=== PATIENT | male | born 1980 | race Caucasian/White ===

== ENCOUNTER 2020-12-22 11:17 | Observation (INO) | payer OTHER, SELFPAY ==
[2020-12-22] VITALS (12 sets, daily range): BP systolic 107–131; BP diastolic 63–89; PULSE 81–117; RESP 16–20; TEMP 36.3–36.6; O2SAT 95–98; BMI 23.8
--- NOTE | ~2020-12-22 | CT_ITS ---
EXAMINATION: CT abdomen pelvis w con DATE: 12/22/2020 15:34 INDICATION: Vomiting. Diarrhea. TECHNIQUE: Computed tomography (CT) of the abdomen and pelvis was performed with 100 mL Omnipaque 350 intravenous contrast. Automated exposure control and iterative reconstruction technique were employe d. The dose-length product was 233.68 mGy-cm. COMPARISON: None. FINDINGS: The visualized portions of the lung bases are clear without pneumonia or pleural effusion. The heart size is normal. No pericardial effusion. There is mild wall thickening of the distal esopha david, likely esophagitis. The liver, gallbladder, spleen, pancreas, adrenal glands, and kidneys are no rmal. The prostate is mildly enlarged. There are dilated loops of jejunum without focal transition po int. The appendix is normal. There are no pathologically enlarged lymph nodes. There is no free intra peritoneal fluid. The bones are unremarkable. IMPRESSION: 1. Mild wall thickening of the distal esophagus, likely esophagitis. 2. Dilated loops of jejunum without focal transition point, likely adynamic ileus. Reviewed, dictated and finalized at location [facility]. [employer] IMPRESSION: 1. Mild wall thickening of the distal esophagus, likely esophagitis. 2. Dilated loops of jejunum without focal transition point, likely adynamic ile us.
[2020-12-22 12:14] LABS: Basophils Percent Auto 0.3 % (0.2-1.2); Eosinophils Absolute Auto 0.3 K/mm3 (0-0.3); Hematocrit 46.6 % (42.0-52.0); Hemoglobin 15.7 g/dL (14.0-18.0); Immature Granulocyte Absolute 0.01 K/mm3 (0.00-0.031); Immature Granulocyte Percent A 0.2 % (0-0.5); Lymphocytes Absolute Auto 0.97 K/mm3 (0.9-3.2); Lymphocytes Percent Auto 15.4 % (18.3-44.2); Mean Corpuscular HGB Conc 33.7 g/dl (32-36); Mean Corpuscular Hemoglobin 29.8 pg (26-34); Mean Corpuscular Volume 88.4 fl (80-100); Mean Platelet Volume 8.8 fl (7.4-10.4); Monocytes Percent Auto 15.9 % (2.6-8.5); Neutrophils Absolute Auto 4.1 K/mm3 (1.3-6.7); Neutrophils Percent Auto 64.2 % (45.5-73.1); Platelet Count Result 263 k/mm3 (150-375); Red Blood Count 5.27 M/mm3 (4.6-6.20); Red Cell Distribution Width 12.6 % (11.5-14.5); White Blood Count 6.3 K/mm3 (4.5-10.0)
[2020-12-22 12:22] LABS: Alanine Aminotransferase 104 U/L (4-50); Albumin Level 4.4 g/dL (3.5-5.1); Alkaline Phosphatase 64 U/L (38-126); Anion Gap 9 mmol/L (8-16); Aspartate Amino Transferase 96 U/L (17-59); Bilirubin,Total 1.1 mg/dL (0.2-1.3); Blood Urea Nitrogen 39 mg/dL (9-20); Calcium 9.4 mg/dL (8.4-10.2); Carbon Dioxide 31 mmol/L (22-30); Chloride 94 mmol/L (98-107); Estimated CRCL calculation 62 ml/min; Estimated Glomerular Filt Rate > 60; Glucose 209 mg/dL (75-110); Lipase 23 U/L (23-300); Potassium 4.1 mmol/L (3.4-5.0); Sodium 134 mmol/L (137-145)
--- NOTE | 2020-12-22 15:29 | ED.GENADULT ---
HPI - General Adult General Chief complaint: Nausea/Vomiting/Diarrhea Stated complaint: Vomiting Blood Time Seen by Provider: 12/22/20 14:24 Source: patient Mode of arrival: ambulatory Limitations: no limitations History of Present Illness HPI narrative: Patient is a 39-year-old male who presents noting that he has had vomiting and diarrhea that occurred yesterday throughout the day patient notes multiple episodes of emesis some described as dark also began after which having some dark stools patient today is denying any abdominal pain notes that his abdomen was firm and tender at the time of emesis patient notes he has several episodes and believes that it may be related to eating green peppers. Patient on arrival notes that his stomach pain is resolved has not had emesis since prior evening. Patient denies anticoagulant use presents in no distress . Patient notes he had 2 similar occurrences that resolved on their own in the past. Patient history of diabetes mellitus which she states has been well controlled. Related Data Home Medications Medication Instructions Recorded Confirmed insulin glargine [Lantus Solostar 20 unit SUBCUT HS 12/22/20 12/22/20 U-100 Insulin] insulin lispro [Humalog KwikPen unit SUBCUT 12/22/20 Insulin] pravastatin 20 mg PO DAILY 12/22/20 12/22/20 Allergies Allergy/AdvReac Type Severity Reaction Status Date / Time No Known Allergies Allergy Verified 12/22/20 15:06 Review of Systems Review of Systems: All systems reviewed & are unremarkable except as noted in HPI and below PMFSH Past Medical History Medical History Diabetes mellitus Social History Social History (Updated 12/22/20 @ 15:31 by William Nichols PA-C) Smoking status: Never smoker Exam Narrative: Exam Narrative: GENERAL: Well-appearing, well-nourished, and in no acute distress. HEAD: Normocephalic, atraumatic. EYES: PERRLA and EOMI. ENT: Nares clear, no rhinorrhea or epistaxis. Mucous membranes moist. CHEST: Clear to auscultation. No respiratory distress. No wheezes rales or rhonchi HEART: Regular rate and rhythm. No murmur heard. Normal peripheral pulses. ABDOMEN: Soft, nontender, nondistended EXTREMITIES: Normal range of motion. No edema. SKIN: Warm, dry, no rash. NEURO: No focal deficits. Alert and oriented x3. Cranial nerves II through XII grossly intact PSYCH: Normal mood and affect. Course Course Emergency Course: Patient at this time in the room has been hydrated will be placed in hospital given the dehydration and adynamic ileus. Patient agreeing to stay in hospital patient has not had emesis in the emergency department last emesis was last night. Patient's vital signs and ABCs are intact and stable. Patient will be kept n.p.o. will be evaluated by general surgery and gastroenterology. Patient is afebrile nontoxic-appearing at this time is been given 2 L of fluids and Protonix in the emergency department Consultations Consultation #1: Patient case discussed with gastroenterology Dr. Champagne and Dr. Leonardo of general surgery who will consult on patient recommend hydration n.p.o. status and reevaluation in the morning Date: 12/22/20 Time: 16:52 Consultation #2: Discussed case with hospitalist ROSE Ahuja who has agreed to accept the patient Date: 12/22/20 Time: 16:56 Vital Signs Vital signs: Vital Signs Temperature 97.9 F 12/22/20 12:02 Pulse Rate 117 H 12/22/20 12:02 Respiratory Rate 18 12/22/20 12:02 Blood Pressure 125/83 12/22/20 12:02 Pulse Oximetry 98 12/22/20 12:02 Temperature 97.9 F 12/22/20 12:02 Pulse Rate 91 12/22/20 15:46 Respiratory Rate 18 12/22/20 15:46 Blood Pressure 131/77 12/22/20 15:46 Pulse Oximetry 96 12/22/20 15:46 Medical Decision Making MDM Narrative Medical decision making narrative: Patient with esophagitis and adynamic ileus seen on CAT scan likely from the retching which has
[2020-12-22 15:32] LABS: Add Urine Microscopic? YES; Appearance Urine Clear (Clear); Bilirubin Urine Negative (Negative); Blood Urine Negative (Negative); Color Urine Yellow (Yellow); Glucose Urine UA 3+ mg/dL (Negative); Ketones Urine Negative (Negative); Leukocyte Esterase Ur Negative LEU/UL (Negative); Mucus Urine Rare /lpf; Nitrate Urine Negative (Negative); Protein Urine 1+ mg/dL (Negative); RBC Urine 0-2 /hpf (0-2); Specific Grav Ur 1.026 (1.001-1.035); Urobilinogen Urine Negative mg/dL (<2.0); WBC Urine 0-3 /hpf
[2020-12-22] MEDS: SODIUM CHLORIDE 0.9% IV 1,000 ML 999 ML IV CONT ×2 (15:45)
[2020-12-22] MEDS: PANTOPRAZOLE SODIUM IV 40 MG VIAL IV PUSH ×2 (15:46→20:31)
--- NOTE | 2020-12-22 19:15 | PC.NURSE ---
Report given to ANA Johnson
[2020-12-22] MEDS: LACTATED RINGERS 1,000 ML 125 ML IV CONT (20:30)
--- NOTE | 2020-12-22 20:36 | ADMGEN ---
This patient, Frank Null, was admitted to Medical Room 343-01. Patient/family oriented to hospital policies and general routines including ID bracelet, bed and alarms, visiting hours, pain management, procedures, bathroom and other care routines, personal items, smoking policy, room service/diet, and visiting hours. Information on how to activate the Rapid Response Team has been discussed. Patient/Family are encouraged to report perceived risks to care and to ask questions if they do not understand what they are told or what they should do.
--- NOTE | 2020-12-22 21:45 | PM.IMHP ---
H&P: HPI History of Present Illness Date/Time: 12/22/20 21:45 Chief Complaint: Nausea and vomiting. Narrative: This is a 39-year-old male with type 1 diabetes and hyperlipidemia who presented to the emergency department earlier today from home with complaints of nausea and vomiting. He began vomiting at approximately 02:00 and has had persistent nausea and vomiting since that time. He came to the emergency department today as his emesis seem to be getting dark, concern for possible blood. Additionally he has had tenderness throughout his upper abdomen and reports severe heartburn since eating green peppers last evening. He had a similar episode last October, interestingly after eating green peppers as well. CT of the abdomen and pelvis today showed findings consistent with esophagitis as well as adynamic ileus and he is being admitted in this setting. He has not vomited since 21:00 and feels much better. He is not having any abdominal discomfort at this time. He had to lose stools earlier today which may have been a bit dark but nothing significant. Prior to that his last bowel movement was 2 days ago. He does not as a rule get indigestion or GERD symptoms very often. He drinks 2 to 3 cups of coffee a day and takes NSAIDs rarely. He denies alcohol use. No recent travel, antibiotic use, or sick contacts. No history of gastroparesis or abdominal surgery. Review of Systems Review of Systems: Narrative: Twelve systems were reviewed with pertinent positives and negatives as per HPI. 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 No cold or flu symptoms. No known exposure to those positive for COVID-19. He denies chest pain shortness of breath. Except as documented, all other systems were reviewed and are negative. [facility] Past Medical History Medical History (Updated 12/22/20 @ 23:11 by Heather Jesus PA-C) Dyslipidemia Type 1 diabetes mellitus Surgical History Surgical History (Updated 12/22/20 @ 23:11 by Heather Jesus PA-C) No history of previous surgery Family History Family History (Updated 12/22/20 @ 23:11 by Heather Jesus PA-C) Mother Diabetes mellitus Social History Social History (Updated 12/22/20 @ 23:12 by Heather Jesus PA-C) Social History: The patient lives in [place] with his . 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 Rare alcohol use. No illicit substance use. He designates his as his surrogate decision maker and he wishes to be a full code. Smoking status: Never smoker Alcohol intake: never Substance use: never Spiritual care concerns: No Meds Home Medications and Allergies Home Medications Medication Instructions Recorded Confirmed Type insulin glargine [Lantus Solostar 20 unit SUBCUT HS 12/22/20 12/22/20 History U-100 Insulin] pravastatin 20 mg PO DAILY 12/22/20 12/22/20 History Allergies Allergy/AdvReac Type Severity Reaction Status Date / Time No Known Allergies Allergy Verified 12/22/20 15:06 Vital Signs Vital Signs - 24 hr 12/22/20 12:02 12/22/20 15:01 12/22/20 15:09 Temperature 97.9 F Pulse Rate 117 H 110 H 90 Respiratory Rate 18 18 Blood Pressure 125/83 107/68 107/68 Pulse Oximetry 98 96 12/22/20 15:46 12/22/20 16:15 12/22/20 16:45 Temperature Pulse Rate 91 91 92 Respiratory Rate 18 18 20 Blood Pressure 131/77 127/88 115/79 Pulse Oximetry 96 98 97 12/22/20 17:15 12/22/20 17:45 12/22/20 18:15 Temperature Pulse Rate 84 83 81 Respiratory Rate 16 16 16 Blood Pressure 118/75 115/63 115/69 Pulse Oximetry 96 96 96 12/22/20 18:45 12/22/20 20:00 12/22/20 20:03 Temperature 97.4 F L Pulse Rate 82 86 83 Respiratory Rate 18 17 16 Blood Pressure 123/75 119/63 117/89 Pulse Oximetry 96 95 97 Exam Narrative: Exam Narrative: General: Well-developed male ly
[2020-12-22 22:10] LABS: Glucose Point of Care 133 (65-105)
[2020-12-23] VITALS: BP 98/56; PULSE 67; RESP 18; TEMP 36.3; O2SAT 96
[2020-12-23 05:30] VITALS: BP 98/54; PULSE 80; RESP 16; TEMP 36.2; O2SAT 97
[2020-12-23 05:54] LABS: Basophils Percent Auto 0.7 % (0.2-1.2); Eosinophils Absolute Auto 0.3 K/mm3 (0-0.3); Eosinophils Percent Auto 7.7 % (0-4.4); Hematocrit 39.3 % (42.0-52.0); Hemoglobin 13.2 g/dL (14.0-18.0); Immature Granulocyte Absolute 0.01 K/mm3 (0.00-0.031); Immature Granulocyte Percent A 0.2 % (0-0.5); Lymphocytes Absolute Auto 1.15 K/mm3 (0.9-3.2); Lymphocytes Percent Auto 28.5 % (18.3-44.2); Mean Corpuscular HGB Conc 33.6 g/dl (32-36); Mean Corpuscular Hemoglobin 29.8 pg (26-34); Mean Corpuscular Volume 88.7 fl (80-100); Mean Platelet Volume 8.9 fl (7.4-10.4); Monocytes Absolute Auto 0.6 K/mm3 (0.1-0.6); Monocytes Percent Auto 14.4 % (2.6-8.5); Neutrophils Percent Auto 48.5 % (45.5-73.1); Platelet Count Result 210 k/mm3 (150-375); Red Blood Count 4.43 M/mm3 (4.6-6.20); Red Cell Distribution Width 12.3 % (11.5-14.5)
[2020-12-23 06:17] LABS: Alanine Aminotransferase 92 U/L (4-50); Albumin Level 3.1 g/dL (3.5-5.1); Alkaline Phosphatase 53 U/L (38-126); Anion Gap 4 mmol/L (8-16); Aspartate Amino Transferase 70 U/L (17-59); Bilirubin,Total 0.9 mg/dL (0.2-1.3); Blood Urea Nitrogen 34 mg/dL (9-20); Calcium 8.4 mg/dL (8.4-10.2); Carbon Dioxide 28 mmol/L (22-30); Chloride 102 mmol/L (98-107); Estimated CRCL calculation 72 ml/min; Estimated Glomerular Filt Rate > 60; Glucose 133 mg/dL (75-110); Lipase 33 U/L (23-300); Magnesium 1.9 mg/dL (1.6-2.3); Potassium 4.2 mmol/L (3.4-5.0); Sodium 134 mmol/L (137-145)
[2020-12-23 06:29] LABS: Hemoglobin A1C 6.8 % (<5.7)
[2020-12-23 07:14] LABS: Hepatitis B Surface Antigen Negative (Negative)
[2020-12-23 07:20] LABS: HAV RESULT Negative (Negative); Hepatitis B Core IgM Result Negative (Negative)
[2020-12-23 07:31] LABS: Hepatitis C Virus Antibody Negative (Negative)
[2020-12-23 08:00] VITALS: BP 116/55; PULSE 84; RESP 18; TEMP 36.6; O2SAT 97
[2020-12-23 08:12] LABS: Glucose Point of Care 162 (65-105)
[2020-12-23] MEDS: PANTOPRAZOLE SODIUM IV 40 MG VIAL IV PUSH (08:38)
[2020-12-23] MEDS: LACTATED RINGERS 1,000 ML 75 ML IV CONT (08:38)
--- NOTE | 2020-12-23 10:07 | WPDGICN ---
Assessment and Plan Assessment and plan (1) Vomiting: Code(s): R11.10 - Vomiting, unspecified Status: Acute Assessment and Plan: Patient had vomiting episode several days ago that resolved spontaneously. He had a similar episode several months ago. The etiology of this remains unclear. Likely related to either dietary intolerance or food poisoning. CT scan is suggestive of esophagitis. This is also consistent with his vomiting history. Would recommend trial of antacid such as Protonix briefly should his episodes of vomiting persists then follow-up endoscopy can be performed electively as an outpatient. (2) Esophagitis: Code(s): K20.90 - Esophagitis, unspecified without bleeding Status: Acute Assessment and Plan: Thickening of the esophagus identified by CT scan appears nonspecific. Likely related to his vomiting. Potentially related to acid reflux. Suggest a brief course of proton pump inhibitor acid suppression. Should patient develop heartburn that persists long-term despite these measures EGD can be performed electively as an outpatient. (3) Elevated LFTs: Code(s): R79.89 - Other specified abnormal findings of blood chemistry Status: Acute Assessment and Plan: Elevated LFTs noted at the time of admission. Etiology unclear. Hepatitis ABC serologies are negative. Patient denies alcohol exposure. Plan to obtain some lab searching for other etiologies of LFTs. Suggest follow-up LFTs be performed in several weeks. If these persist then elective follow-up in the office is advised for further evaluation. Additional Plan Hopefully diet can be advanced and early discharge unless symptoms persist. GI Consult Note Consult date/time: 12/23/20 10:07 HPI: Frank Null is a 40 year old male seen in evaluation at the request of the emergency room. Patient reports that he was in usual state of health till Saturday evening when he ate some peppers and threw up for several hours throughout that night. Over last 1 and half to 2 days he states he is return to his normal health. He denies any abdominal pain he has had no further vomiting. He states he had a similar occurrence several months ago that lasted for similar 1 day. In resolved spontaneously. He presented to the emergency room for further evaluation. It was felt that he was dehydrated by the emergency room service and admitted for rehydration. Admission laboratory tests reveal elevated LFTs. Patient denies any significant alcohol intake. He has never known to have hepatitis in the past he has had no known exposure to hepatitis. Family history is noncontributory. Currently denies abdominal pain he has had no further vomiting noted since presentation to the hospital. Review of Systems Review of Systems: All systems reviewed & are unremarkable except as noted in HPI and below PMFSH Past Medical History Medical History (Updated 12/23/20 @ 10:11 by Brett Champagne MD) Dyslipidemia Type 1 diabetes mellitus Surgical History Surgical History (Updated 12/22/20 @ 23:11 by Heather Jesus PA-C) No history of previous surgery Family History Family History (Updated 12/22/20 @ 23:11 by Heather Jesus PA-C) Mother Diabetes mellitus Social History Social History (Updated 12/22/20 @ 23:12 by Heather Jesus PA-C) Social History: The patient lives in [place] with his . 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 No illicit substance use. He designates his as his surrogate decision maker and he wishes to be a full code. Smoking status: Never smoker Alcohol intake: never Substance use: never Spiritual care concerns: No Meds Home Medications and Allergies Home Medications Medication Instructions Recorded Confirmed Type insulin glargine [Lantus Solostar 20 unit SUBCUT HS 12/22/20 12/22/20 History U-100 Insulin] pravast
--- NOTE | 2020-12-23 10:53 | PM.DS ---
DS: Admitting Diagnosis Admitting Diagnosis Admitting Diagnosis: n/v/diarrhea DS: Discharge Diagnosis Discharge Diagnosis (1) Esophagitis: Code(s): K20.90 - Esophagitis, unspecified without bleeding Status: Acute (2) Adynamic ileus: Code(s): K56.0 - Paralytic ileus Status: Acute (3) Acute dehydration: Code(s): E86.0 - Dehydration Status: Acute (4) Type 1 diabetes mellitus: Code(s): E10.9 - Type 1 diabetes mellitus without complications Status: Acute (5) Dyslipidemia: Code(s): E78.5 - Hyperlipidemia, unspecified Status: Acute (6) Elevated LFTs: Code(s): R79.89 - Other specified abnormal findings of blood chemistry Status: Acute DS: Summary Hospital Course Hospital Course: Patient is a 40-year-old type 1 diabetic who presented emergency room for persistent nausea, vomiting and epigastric pain. Patient states he had eaten peppers, red sauce and pizza when he started having significant pain, bloating, and nausea. Patient also had vomiting and diarrhea that was a little dark and was worrisome so he came into the emergency room. Vitals in the ER were 97.9? F, pulse 117, respiratory rate 18, blood pressure 125/83, pulse ox 98 on room air. CBC within normal limits. Anion gap normal. CT of the abdomen pelvis showed mild wall thickening of the distal esophagus likely esophagitis with dilated loops of jejunum likely adynamic ileus. Patient was admitted to the hospitalist service and observed overnight. His bloating and abdominal pain resolved and he no longer had any nausea or vomiting. He was seen by GI and started on a PPI and plans for an outpatient EGD will be performed. He also had very mild LFT elevation which could be due to acute vomiting and diarrhea. Hepatitis panel was drawn which was negative. His LFTs had already improved the day after. I talked to him about this and he is going to get these redrawn in 3 weeks and follow-up with primary care physician about this. The patient is not having any more nausea, vomiting, bloating or diarrhea. He is tolerating a diet and was eager for discharge. He was educated about the worrisome signs and symptoms come back to emergency room for was discharged stable condition. Status at Discharge Functional status at discharge: independent ambulation Overall status at discharge: patient is back to baseline Time Spent with Patient Time attestation: Total time spent providing and/or coordinating discharge services:34 min Time spent: Greater than 30 minutes Exam Narrative: Exam Narrative: General: Well developed well nourished patient in NAD HEENT: normocephalic Neck: supple Neuro: Alert and oriented x4 CV:RRR Resp:CTA Abd: Soft, non distended. No pain to palpation. Positive bowel sounds. No hepatosplenomegaly Extremities: No swelling, erythema, or pain to palpation. DS: Data Data Completed and Pending Labs on day of discharge: Labs from last 24 hours 12/23/20 12/23/20 12/23/20 10:33 10:33 10:33 WBC RBC Hgb Hct MCV MCH MCHC RDW Plt Count MPV Immature Gran % (Auto) Neut % (Auto) Lymph % (Auto) [place] % (Auto) Eos % (Auto) Baso % (Auto) Lymph # (Auto) [place] # (Auto) Eos # (Auto) Baso # (Auto) Abs Immat Gran (auto) Absolute Neuts (auto) Absolute Nucleated RBC Nucleated RBC % Sodium Potassium Chloride Carbon Dioxide Anion Gap BUN Creatinine Estim Creat Clear Calc Estimated GFR Glucose POC Capillary Glucose Hemoglobin A1c Calcium Magnesium Ferritin Total Bilirubin Direct Bilirubin AST ALT Alkaline Phosphatase Total Protein Albumin Veakt-[id number] Pending Ceruloplasmin Pending Lipase Urine Color Urine Appearance Urine pH Ur Specific [place] Urine Protein Urine Glucose (UA) Urine Ketones Ur Blood (Man)
[2020-12-23 11:30] VITALS: O2SAT 98
[2020-12-23 11:32] LABS: Glucose Point of Care 153 (65-105)
[2020-12-23 12:00] VITALS: BP 126/65; PULSE 74; RESP 16; TEMP 36.6; O2SAT 97
[2020-12-26 11:07] LABS: Mitochondrial (M2) Ab (IgG) <=20.0 U (<=20.0)
[2020-12-28 20:31] LABS: Alpha-1-Antitrypsin, QN 156 mg/dL (83-199); Ceruloplasmin 28 mg/dL (18-36)
== END 2020-12-23 13:30 | disposition home or self-care (01) ==
LOC: ANHED 16:56 → ANH3MED 19:16
PROVIDERS: Emergency Medicine Emergency Medical Services; Internal Medicine Gastroenterology; Physician Assistant; Admitting Provider Internal Medicine; Emergency Provider Emergency Medicine; PCP Family Medicine; Visit Provider Family Medicine
DX: K56.0 Paralytic ileus (principal); E86.0 Dehydration; N17.9 Acute kidney failure, unspecified; K20.90 Esophagitis, unspecified without bleeding; E10.65 Type 1 diabetes mellitus with hyperglycemia; R79.89 Other specified abnormal findings of blood chemistry; E78.5 Hyperlipidemia, unspecified
CPT/HCPCS: 36415; 74177; 80048; 80053; 80074; 80076; 81001; 82103; 82390; 82728; 83036; 83520; 83690; 83735; 85025; 86038; 86850; 86900; 86901; 96361; 96374; 96376; 99285; C9113; G0378; J7030; J7120; Q9967

== ENCOUNTER 2022-01-11 16:52 | Inpatient (IN) | payer OTHER, SELFPAY ==
--- NOTE | ~2022-01-11 | CT_ITS ---
EXAMINATION: CT abdomen pelvis w con DATE: 01/11/2022 18:28 INDICATION: Epigastric abdominal pain. Vomiting. TECHNIQUE: Computed tomography (CT) of the abdomen and pelvis was performed with 100 mL Omnipaque 350 intravenous contrast. Automated exposure control and iterative reconstruction technique were employe d. The dose-length product was 225.89 mGy-cm. COMPARISON: CT abdomen and pelvis 12/22/2020 FINDINGS: The visualized portions of the lung bases demonstrate a calcified nodule in right lower lob e, consistent with old granulomatous disease. No pleural effusion. The heart size is normal. No peric ardial effusion. The liver, gallbladder, spleen, pancreas, adrenal glands, and kidneys are normal. Th e appendix is not visualized. There are multiple dilated loops of proximal small bowel. Distal small bowel is decompressed. There are no pathologically enlarged lymph nodes. There is no free intraperito pati fluid. The bones are unremarkable. IMPRESSION: 1. Small bowel obstruction involving jejunum. Reviewed, dictated and finalized at location E. BURNER APPRENTICE
--- NOTE | ~2022-01-11 | XR_ITS ---
XR sm bowel follow through WS DATE: 01/12/2022 12:25 INDICATION: Small bowel obstruction TECHNIQUE: Serial images of the abdomen after administration of water soluble Omnipaque 350 contrast material through existing NG tube DAP: 6.2875 Fluoroscopy time: 0.1 minutes COMPARISON: January 11, 2022 CT abdomen pelvis FINDINGS: There is a nasogastric tube in the body of the stomach. There is nonspecific mild dilatation of the jejunum but no focal stricture or obstruction is identifi ed. Contrast material is noted in the colon within 75 minutes and at the rectum by 90 minutes. No mucosal fold thickening is detected. No intraluminal mass lesion is noted. The terminal ileum appears normal. IMPRESSION: Nonspecific mild jejunal dilatation without apparent obstruction Reviewed, dictated and finalized at Location A. Reviewed, dictated and finalized at location A. S [employer]
--- NOTE | ~2022-01-11 | XR_ITS ---
EXAMINATION: XR abdomen NG/feed tube insert DATE: 01/11/2022 20:01 INDICATION: Nasogastric tube placement. TECHNIQUE: An upright view of the abdomen was obtained. COMPARISON: CT abdomen and pelvis 01/11/2022 FINDINGS: The lower abdomen is excluded. There are dilated loops of proximal small bowel. The nasogas tric tube tip is in the stomach. IMPRESSION: 1. Dilated jejunum, consistent with small bowel obstruction. Reviewed, dictated and finalized at location E. STANT TRACK COACH
[2022-01-11 16:55] VITALS: BP 126/86; PULSE 113; RESP 18; TEMP 36.6; O2SAT 98
--- NOTE | 2022-01-11 17:05 | PC.NURSE ---
Patient refused catheter and stated he would try to void.
--- NOTE | 2022-01-11 17:06 | ED.NAVMDI ---
HPI - Nausea/Vomiting/Diarrhea General Chief complaint: Nausea/Vomiting/Diarrhea Stated complaint: vomiting Time Seen by Provider: 01/11/22 17:00 Source: patient Mode of arrival: ambulatory Limitations: no limitations History of Present Illness HPI Narrative: Patient is a 41-year-old male complaining of epigastric pain, burning, 6 out of 10, and rating accompanied by nausea and vomiting x36 hours. Patient describes as vomitus is nonbilious nonbloody. Patient states that had a same exact similar episode 1 year ago and was seen here, had labs and a CT scan of his abdomen pelvis done, diagnosed with esophagitis. Patient denies any chest pain, shortness of breath, urinary symptoms, diarrhea, fever or chills. Related Data Home Medications Medication Instructions Recorded Confirmed Lantus Solostar U-100 Insulin 20 unit SUBCUT HS 12/22/20 12/22/20 pravastatin 20 mg PO DAILY 12/22/20 12/22/20 Allergies Allergy/AdvReac Type Severity Reaction Status Date / Time No Known Allergies Allergy Verified 12/22/20 15:06 Review of Systems Review of Systems: All systems reviewed & are unremarkable except as noted in HPI and below Constitutional: Constitutional: Denies body ache(s), Denies chills, Denies excessive sweating, Denies fatigue, Denies fever(s), Denies headache(s), Denies lethargy, Denies malaise, Denies weakness and Denies weight loss Eyes: Eyes: Denies blurry vision, Denies change in vision and Denies loss of vision ENT: Denies dizziness, Denies ear discharge, Denies headache(s), Denies lip swelling, Denies epistaxis, Denies nasal congestion, Denies neck pain, Denies throat swelling and Denies tongue swelling Cardiovascular: Cardiovascular: Denies chest pain, Denies chest pain at rest, Denies chest pain with activity, Denies diaphoresis, Denies rapid heart rate, Denies edema, Denies irregular heart rhythm, Denies lightheadedness, Denies palpitations, Denies dyspnea and Denies dyspnea on exertion Respiratory: Respiratory: Denies chest congestion, Denies cough, Denies hemoptysis, Denies dyspnea and Denies dyspnea on exertion Gastrointestinal: Gastrointestinal: Denies melena, Denies hematochezia, Denies diarrhea and Denies hematemesis Musculoskeletal: Musculoskeletal: Denies abnormal gait, Denies deformity, Denies joint swelling, Denies limited range of motion, Denies neck pain and Denies numbness Neurologic: Denies Abnormal speech present, Denies abnormal gait, Denies confusion, Denies dizziness, Denies headache(s), Denies focal weakness, Denies loss of vision, Denies numbness, Denies Other visual disturbances, Denies Sensory deficit (Neuro) and Denies weakness Psychiatric: Psychiatric: Denies confusion, Denies depression, Denies auditory hallucinations, Denies homicidal ideation and Denies suicidal ideation Endocrine: Endocrine: Denies cold intolerance, Denies excessive sweating, Denies fatigue, Denies heat intolerance and Denies palpitations Hematologic/Lymphatic: Hematologic/Lymphatic: Denies easy bleeding and Denies easy bruising Allergic/Immunologic: Allergic/Immunologic: Denies lip swelling, Denies throat swelling and Denies tongue swelling PMFSH Past Medical History Medical History Dyslipidemia Type 1 diabetes mellitus Surgical History Surgical History No history of previous surgery Family History Family History Mother Diabetes mellitus Social History Social History Social History: The patient lives in [place] with his . 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 No illicit substance use. He designates his as his surrogate decision maker and he wishes to be a full code. Smoking status: Never smoker Alcohol intake: never Substanc
--- NOTE | 2022-01-11 17:08 | ECG_ITS ---
Measurements Intervals Barker Rate: 88 P: 61 ND: 171 QRS: -9 QRSD: 76 T: 77 QT: 350 QTc: 425 Interpretive Statements SINUS RHYTHM POSSIBLE LEFT ATRIAL ENLARGEMENT CANNOT RULE OUT SEPTAL INFARCT, AGE INDETERMINATE BORDERLINE ST-T WAVE ABNORMALITY- HIGH LATERAL LEADS ABNORMAL ECG Electronically Signed On 01-11-2022 20:30:16 CONTENT STRATEGY LEAD by Surinder Lovell D.O.
[2022-01-11 17:17] LABS: Basophils Percent Auto 0.4 % (0.2-1.2); Eosinophils Absolute Auto 0.2 K/mm3 (0-0.3); Eosinophils Percent Auto 2.3 % (0-4.4); Hematocrit 47.9 % (42.0-52.0); Hemoglobin 15.9 g/dL (14.0-18.0); Immature Granulocyte Absolute 0.02 K/mm3 (0.00-0.031); Immature Granulocyte Percent A 0.2 % (0-0.5); Lymphocytes Absolute Auto 1.01 K/mm3 (0.9-3.2); Lymphocytes Percent Auto 12.4 % (18.3-44.2); Mean Corpuscular HGB Conc 33.2 g/dl (32-36); Mean Corpuscular Hemoglobin 29.9 pg (26-34); Mean Platelet Volume 9.2 fl (7.4-10.4); Monocytes Percent Auto 11.8 % (2.6-8.5); Neutrophils Absolute Auto 5.9 K/mm3 (1.3-6.7); Neutrophils Percent Auto 72.9 % (45.5-73.1); Platelet Count Result 295 k/mm3 (150-375); Red Blood Count 5.32 M/mm3 (4.6-6.20); Red Cell Distribution Width 12.5 % (11.5-14.5); White Blood Count 8.2 K/mm3 (4.5-10.0)
[2022-01-11] MEDS: SODIUM CHLORIDE 0.9% IV 1,000 ML 999 ML IV CONT (17:26)
[2022-01-11] MEDS: PROMETHAZINE HCL 25 MG/ML AMPUL 12.5 MG IV PUSH (17:26)
[2022-01-11 17:52] VITALS: BP 122/78; PULSE 85
[2022-01-11 17:53] VITALS: BP 137/96; PULSE 92
[2022-01-11 17:54] VITALS: BP 122/84; PULSE 110
[2022-01-11 17:54] LABS: Lactic Acid Reflex 3.1 mmol/L (0.7-2.1)
[2022-01-11 18:09] LABS: Troponin I 0.013 ng/mL (0.000-0.034)
--- NOTE | 2022-01-11 18:10 | PC.NURSE ---
Patient still unable to void and refused catheter.
[2022-01-11 18:13] LABS: Alanine Aminotransferase 106 U/L (4-50); Albumin Level 4.9 g/dL (3.5-5.1); Alkaline Phosphatase 87 U/L (38-126); Anion Gap 12 mmol/L (8-16); Aspartate Amino Transferase 78 U/L (17-59); Bilirubin,Total 1.3 mg/dL (0.2-1.3); Blood Urea Nitrogen 50 mg/dL (9-20); Calcium 9.9 mg/dL (8.4-10.2); Carbon Dioxide 33 mmol/L (22-30); Chloride 89 mmol/L (98-107); Estimated CRCL calculation 52 ml/min; Estimated Glomerular Filt Rate 52; Glucose 344 mg/dL (65-110); Lipase 54 U/L (23-300); Potassium 4.6 mmol/L (3.4-5.0); Sodium 134 mmol/L (137-145)
[2022-01-11] MEDS: PANTOPRAZOLE SODIUM IV 40 MG VIAL IV PUSH (18:34)
--- NOTE | 2022-01-11 18:50 | PC.NURSE ---
patient refused catheter and has not voided yet
[2022-01-11 19:14] VITALS: BP 118/83; PULSE 98; RESP 20; O2SAT 98
[2022-01-11] MEDS: HYDROmorphone HCL INJ (*CRX) 1 MG/ML SYR 0.5 MG IV PUSH (19:15)
[2022-01-11] MEDS: LACTATED RINGERS 1,000 ML 999 ML IV CONT (19:16)
[2022-01-11] MEDS: ONDANSETRON INJ 4 MG/2 ML VIAL IV PUSH (19:16)
[2022-01-11 19:30] LABS: Glucose Point of Care 233 mg/dl (65-105)
[2022-01-11 20:32] LABS: Add Urine Microscopic? YES; Appearance Urine Clear (Clear); Bilirubin Urine Negative (Negative); Blood Urine Negative (Negative); Color Urine Straw (Yellow); Glucose Urine UA 3+ mg/dL (Negative); Ketones Urine 1+ mg/dL (Negative); Leukocyte Esterase Ur Negative LEU/UL (Negative); Nitrate Urine Negative (Negative); Protein Urine Negative (Negative); RBC Urine 0-2 /hpf (0-2); Urobilinogen Urine Negative mg/dL (<2.0); WBC Urine 0-3 /hpf
[2022-01-11 20:35] LABS: Reflex Lactic Acid Yes or No Add Lactic
[2022-01-11 21:04] LABS: Alveolar/Arterial O2 Gradient 19.6 mmHg; HCO3 ABG 28.1 mEq/l (22.0-26.0); Oxygen Content ABG 19.3 %vol (16.0-22.0); Oxygen Saturation ABG 95.5 % (95.0-100.0); PCO2 ABG 44.7 mmHg (35.0-45.0); PO2 ABG 76.6 mmHg (80.0-100.0); Total Hemoglobin 14.7 g/dL (12.0-18.0); pH ABG 7.417 (7.350-7.450)
[2022-01-11 21:05] LABS: Carboxyhemoglobin 0.7 % THb (0-2.0); Fractional Inspired Oxygen 21 %; Methemoglobin ABG 0.5 %THb (0-1.5); Oxyhemoglobin 93.4 % THb (90.0-100.0); PO2 FiO2 Ratio Arterial Blood 3.65 %; Reduced Hemoglobin 5.4 %THb (0-5.0); Site Drawn RIGHT RADIAL
[2022-01-11 21:06] LABS: Device ROOM AIR; Modified Allen's Test Pass
[2022-01-11 21:07] LABS: SARS-CoV-2 RNA PCR Negative
[2022-01-11 21:10] LABS: Lactic Acid 1.7 mmol/L (0.7-2.1)
--- NOTE | 2022-01-11 21:10 | PM.IMHP ---
H&P: HPI History of Present Illness Date/Time: 01/11/22 21:10 Chief Complaint: Vomiting and abdominal pain Narrative: 41-year-old male with past medical history of dyslipidemia, GERD, type 1 diabetes mellitus and prior hospitalizations for adynamic ileus and esophagitis 1 year ago who presented to the ER with 36 hours of abdominal pain and vomiting. The patient reports that his abdominal pain is epigastric in nature and was accompanied by some bloating. This pain is 6/10 in intensity and was worse after he had eaten. The pain was accompanied by nausea vomiting poorly areas he was able to eat some slice apples and sliced ham and keep it down for several hours prior to having onset of vomiting again 8 hours later. After his last episode of vomiting he did have some green emesis. His emesis has been nonbloody. And similar symptoms 1 year ago was diagnosed with esophagitis with thickening of his esophagus on CT scan and small-bowel obstruction versus ileus in the area of the jejunum. He denies any fevers or chills or recent ill contacts. He did recently have COVID-19 but had mild symptoms for 3 or 4 days that has since resolved. He does have a longstanding history of type 1 diabetes mellitus. He reports that his A1c last year when he was admitted was around 7 and this year's A1c has creeped up to 8. He denies any chest pain or shortness of breath. He denies any peripheral neuropathy or vision changes. He denies any changes in his bowel habits. Review of Systems Review of Systems: 12 systems were reviewed with pertinent positives and negatives per HPI. Except as documented in the HPI, all other systems were reviewed and are negative. [facility] Past Medical History Medical History Dyslipidemia Type 1 diabetes mellitus Surgical History Surgical History No history of previous surgery Family History Family History Mother Diabetes mellitus Social History Social History Social History: The patient lives in [place] with his . 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 Rare alcohol use. No illicit substance use. He designates his as his surrogate decision maker and he wishes to be a full code. Smoking packs per day: 0.5 Smoking cigarettes per day: 10.0 Years smoked: 2 Smoking pack-years: 1.00 Smoking status: Smoker, status unknown Alcohol intake: never Substance use: never Spiritual care concerns: No Meds Home Medications and Allergies Home Medications Medication Instructions Recorded Confirmed Type Lantus Solostar U-100 Insulin 21 unit SUBCUT HS 12/22/20 01/11/22 History insulin aspart U-100 [Novolog 15 unit SUBCUT AC 01/11/22 01/11/22 History Flexpen U-100 Insulin] omeprazole 20 mg PO DAILY 01/11/22 01/11/22 History Allergies Allergy/AdvReac Type Severity Reaction Status Date / Time No Known Allergies Allergy Verified 12/22/20 15:06 Vital Signs Vital Signs - 24 hr 01/11/22 16:55 01/11/22 17:52 01/11/22 17:53 Temperature 97.9 F Pulse Rate 113 H 85 92 Respiratory Rate 18 Blood Pressure 126/86 122/78 137/96 H Pulse Oximetry 98 01/11/22 17:54 01/11/22 19:14 Temperature Pulse Rate 110 H 98 Respiratory Rate 20 Blood Pressure 122/84 118/83 Pulse Oximetry 98 Exam Narrative: PHYSICAL EXAM: WEIGHT 63 kg BMI 22.4 General: No acute distress, well-developed well-nourished HEENT: NG in right nare, mucous membranes are tacky, no oral pharyngeal erythema, good dentition Respiratory: No increased work of breathing, clear to auscultation bilaterally Cardiovascular: Regular rate, regular rhythm, 2+ bilateral radial pedal pulses Gastrointestinal: Soft, mildly distended, nontender, hypoactive bowel sounds Skin: No leo
[2022-01-11 21:31] VITALS: BMI 22.7
[2022-01-11 21:32] VITALS: BP 126/76; PULSE 88; RESP 18; TEMP 36.1; O2SAT 95
[2022-01-11] MEDS: LACTATED RINGERS 1,000 ML 150 ML IV CONT (21:45)
--- NOTE | 2022-01-11 22:10 | PC.NURSE ---
This patient, Frank Null, was admitted to Medical Room 340-01. Patient/family oriented to hospital policies and general routines including ID bracelet, bed and alarms, visiting hours, pain management, procedures, bathroom and other care routines, personal items, smoking policy, room service/diet, and visiting hours. Information on how to activate the Rapid Response Team has been discussed. Patient/Family are encouraged to report perceived risks to care and to ask questions if they do not understand what they are told or what they should do.
[2022-01-11 22:14] LABS: Glucose Point of Care 228 mg/dl (65-105)
[2022-01-11] MEDS: INSULIN ASPART (*BKC) 100 UNITS/ML SUB-Q (23:01)
[2022-01-11] MEDS: INSULIN GLARGINE (*BKC) 100 UNITS/ML 10 UNITS SUB-Q (23:01)
[2022-01-12] MEDS: LACTATED RINGERS 1,000 ML 150 ML IV CONT ×3 (04:23→21:11)
[2022-01-12 05:30] VITALS: BP 107/60; PULSE 76; RESP 16; TEMP 36.1; O2SAT 96
[2022-01-12 06:12] LABS: Glucose Point of Care 95 mg/dl (65-105)
[2022-01-12 06:55] LABS: Alanine Aminotransferase 93 U/L (4-50); Albumin Level 3.6 g/dL (3.5-5.1); Alkaline Phosphatase 58 U/L (38-126); Anion Gap 5 mmol/L (8-16); Aspartate Amino Transferase 56 U/L (17-59); Blood Urea Nitrogen 37 mg/dL (9-20); Calcium 8.5 mg/dL (8.4-10.2); Carbon Dioxide 28 mmol/L (22-30); Chloride 100 mmol/L (98-107); Estimated CRCL calculation 65 ml/min; Estimated Glomerular Filt Rate > 60; Glucose 117 mg/dL (65-110); Sodium 133 mmol/L (137-145)
[2022-01-12] MEDS: ENOXAPARIN 40 MG/0.4 ML SYRINGE SUB-Q (08:07)
[2022-01-12] MEDS: PANTOPRAZOLE SODIUM IV 40 MG VIAL IV PUSH (08:08)
--- NOTE | 2022-01-12 10:05 | PM.CNGS ---
Assessment and Plan Assessment and plan (1) Small bowel obstruction: Code(s): K56.609 - Unspecified intestinal obstruction, unspecified as to partial versus complete obstruction Status: Acute Assessment and Plan: exam benign, cont conservative mgmt c bowel rest, NG decompression, will get SBS for further eval History of Present Illness Consult details Consult date: 01/12/22 Reason for consult: abdominal pain Requesting physician: Lali Meyer DO Narrative: Pt is a 41 y/o F presenting c intractable N/V, crampy abd pain, distention over last 36 hours. Pt reports symptoms started after having big meal and he began to feel very uncomfortable. Pt then forced himself to throw up and he felt much better. Pt reports symptoms returned after eating again. Pt also c/o dysphagia that was relieved after throwing up. Pt reports he is passing flatus and had small BM yesterday. Pt reports he feels pretty normal at this point after NG was placed. Pt reports similar episode about a year ago and was dx'd c reflux, esophagitis. Review of Systems Constitutional: Constitutional: Reports as per HPI, Reports anorexia, Denies chills, Denies fatigue, Denies fever(s), Denies increased appetite, Denies lethargy, Denies malaise, Reports poor appetite, Denies weakness, Denies weight gain and Denies weight loss Eyes: Eyes: Reports no additional eye complaints ENT: Reports system reviewed and no additional complaints, except as documented Cardiovascular: Cardiovascular: Reports no additional cardiovascular complaints Respiratory: Respiratory: Reports no additional respiratory complaints Gastrointestinal: Gastrointestinal: Reports as per HPI, Reports abdominal pain, Reports belching, Reports bloating, Reports change in bowel habits, Reports change in stool character, Reports GI cramping, Reports dysphagia, Reports early satiety, Reports heartburn, Denies diarrhea, Denies loose stools, Reports nausea, Reports vomiting and Denies hematemesis Genitourinary: Genitourinary: Reports no additional male genitourinary complaints Musculoskeletal: Musculoskeletal: Reports no additional musculoskeletal complaints Integumentary/Breasts: Skin/Breast: Reports system reviewed and no additional complaints, except as docu Neurologic: Reports system reviewed and no additional complaints, except as documented Psychiatric: Psychiatric: Reports no additional psychiatric complaints Endocrine: Endocrine: Reports no additional endocrine complaints Hematologic/Lymphatic: Hematologic/Lymphatic: Reports no additional hematologic/lymphatic complaints Allergic/Immunologic: Allergic/Immunologic: Reports no additional allergic/immunologic complaints PMFSH Past Medical History Medical History Dyslipidemia Type 1 diabetes mellitus Surgical History Surgical History No history of previous surgery Family History Family History Mother Diabetes mellitus Social History Social History Social History: The patient lives in [place] with his . 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 No illicit substance use. He designates his as his surrogate decision maker and he wishes to be a full code. Smoking packs per day: 0.5 Smoking cigarettes per day: 10.0 Years smoked: 2 Smoking pack-years: 1.00 Smoking status: Smoker, status unknown Alcohol intake: never Substance use: never Spiritual care concerns: No Meds Home Medications and Allergies Home Medications Medication Instructions Recorded Confirmed Type Lantus Solostar U-100 Insulin 21 unit SUBCUT HS 12/22/20 01/11/22 History insulin aspart U-100 [Novolog 15 unit SUBCUT AC 01/11/22 01/11/22 History Flexpen U-100 I
--- NOTE | 2022-01-12 10:34 | PM.IMPN ---
Progress Note: A&P Assessment and Plan (1) Small bowel obstruction: Code(s): K56.609 - Unspecified intestinal obstruction, unspecified as to partial versus complete obstruction Status: Acute Assessment and Plan: At the level of the jejunum NG tube clamped S/p SBS General surgery consulted, recommendation appreciated MAUREEN Lamar (2) Acute kidney injury: Code(s): N17.9 - Acute kidney failure, unspecified Status: Acute Assessment and Plan: Cr WNL S/p IVF Monitor (3) Hyperglycemia due to type 1 diabetes mellitus: Code(s): E10.65 - Type 1 diabetes mellitus with hyperglycemia Status: Acute Assessment and Plan: Resume 1/2 home Lantus dose SSI, accuchecks, hypoglycemic protocol Monitor (4) Elevated LFTs: Code(s): R79.89 - Other specified abnormal findings of blood chemistry Status: Acute Assessment and Plan: He has had elevated LFTs during his prior hospitalization but was also suffering from GI illness and dehydration at that time as well Improving Repeat CMP in a.m. Additional Plan Code status: FULL Disposition: home tomorrow if stable and tolerating diet Subjective Date/time seen: 01/12/22 10:34 Interval history: Pt seen and evaluated; labs, vs, diagnostic results; consult notes reviewed; abdominal pain improved; denies any nausea; pt does endorse diarrhea Review of Systems Review of Systems: All systems reviewed & are unremarkable except as noted in HPI and below Exam Narrative: General: No acute distress, well-developed well-nourished HEENT: NG in right nare, mucous membranes are tacky, no oral pharyngeal erythema, good dentition Respiratory: No increased work of breathing, clear to auscultation bilaterally Cardiovascular: Regular rate, regular rhythm, 2+ bilateral radial pedal pulses Gastrointestinal: Soft, mildly distended, nontender, hypoactive bowel sounds Skin: No lesion, no rashes Musculoskeletal: No clubbing, cyanosis or edema Neurological: Alert oriented, speech she is multiple old, no facial asymmetry Psychiatric: Cooperative Objective Data Vital Signs Vital Signs: Vital Signs - 24 hr 01/11/22 16:55 01/11/22 17:52 01/11/22 17:53 Temperature 36.6 C Pulse Rate 113 H 85 92 Respiratory Rate 18 Blood Pressure 126/86 122/78 137/96 H Pulse Oximetry 98 01/11/22 17:54 01/11/22 19:14 01/11/22 21:32 Temperature 36.1 C L Pulse Rate 110 H 98 88 Respiratory Rate 20 18 Blood Pressure 122/84 118/83 126/76 Pulse Oximetry 98 95 01/12/22 05:30 Temperature 36.1 C L Pulse Rate 76 Respiratory Rate 16 Blood Pressure 107/60 Pulse Oximetry 96 Intake/Output Intake/Output: Intake & Output 01/09/22 01/10/22 01/11/22 01/12/22 23:59 23:59 23:59 23:59 Intake Total 1999 1000 Output Total 250 Balance 1999 750 Meds/Results Medications: Active Medications Generic Name Dose Route Start Last Admin Trade Name Freq PRN Reason Stop Dose Admin Dextrose 12.5 gm 01/11/22 21:09 Dextrose 50% 25 Gm/50 Ml Syringe IV PUSH PRN PRN Hypoglycemia Protocol Enoxaparin Sodium 40 mg 01/12/22 09:00 01/12/22 08:07 Enoxaparin 40 Mg/0.4 Ml Syringe SUB-Q 40 mg DAILY LINDSEY Administration Glucagon 1 mg 01/11/22 21:09 Glucagon For Inj 1 Mg Vial IM PRN PRN Hypoglycemia Protocol Glucose 15 gm 01/11/22 21:09 Glucose Oral Gel 15 Gm Of Glucse In 37.5 Gm Tube PO PRN PRN Hypoglycemia Protocol Lactated Ringer's 1,000 mls @ 150 mls/hr 01/11/22 19:15 01/12/22 04:23 Lr - Lactated Ringers Iv IV CONT 150 mls/hr .[id number] LINDSEY Administration Dextrose 1,000 mls @ 100 mls/hr 01/11/22 21:09 Dextrose 5% 1,000 Ml IVPB PRN PRN Hypoglycemia Protocol Acetaminophen 1,000 mg in 100 mls @ 400 mls/hr 01/11/22 23:33 01/12/22 08:07 Ofirmev 1,000 Mg Ivpb IVPB 01/12/22 23:32 400 mls/hr Q6H PRN Administration Pain Rated 4-6
[2022-01-12 12:39] LABS: Glucose Point of Care 103 mg/dl (65-105)
[2022-01-12 14:00] VITALS: BP 113/66; PULSE 82; RESP 18; TEMP 36.3; O2SAT 96
[2022-01-12 18:05] LABS: Glucose Point of Care 200 mg/dl (65-105)
[2022-01-12 20:16] LABS: Glucose Point of Care 224 mg/dl (65-105)
[2022-01-12] MEDS: INSULIN GLARGINE (*BKC) 100 UNITS/ML 10 UNITS SUB-Q (20:53)
[2022-01-12 21:42] VITALS: BP 107/67; PULSE 64; RESP 18; TEMP 36.3; O2SAT 98
[2022-01-13 02:18] LABS: Glucose Point of Care 157 mg/dl (65-105)
[2022-01-13] MEDS: LACTATED RINGERS 1,000 ML 150 ML IV CONT (05:21)
[2022-01-13 05:32] VITALS: BP 107/67; PULSE 121; RESP 20; TEMP 35.9; O2SAT 97
[2022-01-13 05:55] LABS: Hemoglobin 12.9 g/dL (14.0-18.0); Mean Corpuscular HGB Conc 33.1 g/dl (32-36); Mean Corpuscular Hemoglobin 30.3 pg (26-34); Mean Corpuscular Volume 91.5 fl (80-100); Mean Platelet Volume 9.2 fl (7.4-10.4); Platelet Count Result 197 k/mm3 (150-375); Red Blood Count 4.26 M/mm3 (4.6-6.20); Red Cell Distribution Width 12.1 % (11.5-14.5); White Blood Count 3.8 K/mm3 (4.5-10.0)
[2022-01-13 06:10] LABS: Alanine Aminotransferase 77 U/L (4-50); Albumin Level 3.3 g/dL (3.5-5.1); Alkaline Phosphatase 59 U/L (38-126); Anion Gap 8 mmol/L (8-16); Aspartate Amino Transferase 41 U/L (17-59); Bilirubin,Total 0.7 mg/dL (0.2-1.3); Blood Urea Nitrogen 18 mg/dL (9-20); Calcium 8.5 mg/dL (8.4-10.2); Carbon Dioxide 28 mmol/L (22-30); Chloride 98 mmol/L (98-107); Estimated CRCL calculation 78 ml/min; Estimated Glomerular Filt Rate > 60; Glucose 135 mg/dL (65-110); Sodium 134 mmol/L (137-145)
[2022-01-13] MEDS: PANTOPRAZOLE SODIUM IV 40 MG VIAL IV PUSH (09:38)
--- NOTE | 2022-01-13 09:38 | PM.DS ---
DS: Admitting Diagnosis Discharge Date 01/13/2022 Admitting Diagnosis Abdominal pain DS: Discharge Diagnosis Discharge Diagnosis (1) Small bowel obstruction: Code(s): K56.609 - Unspecified intestinal obstruction, unspecified as to partial versus complete obstruction Status: Acute Assessment and Plan: Surgery was consulted status post nasogastric tube patient tolerated diet follow-up with surgery as outpatient (2) Hyperglycemia due to type 1 diabetes mellitus: Code(s): E10.65 - Type 1 diabetes mellitus with hyperglycemia Status: Acute Assessment and Plan: Insulin sliding scale (3) Elevated LFTs: Code(s): R79.89 - Other specified abnormal findings of blood chemistry Status: Acute Assessment and Plan: Follow-up with PCP as outpatient probable fatty liver (4) Vomiting: Code(s): R11.10 - Vomiting, unspecified Status: Acute Assessment and Plan: Secondary to bowel obstruction resolved DS: Summary Hospital Course Hospital Course: Patient presented to the hospital with abdominal distension was found to have probable ileus surgery was consulted nasogastric tube was placed patient treated conservatively his condition improved nasogastric tube was removed patient tolerated diet patient to follow-up with surgery as outpatient Time Spent with Patient Time attestation: Total time spent providing and/or coordinating discharge services: Exam Narrative: Alert Chest no wheeze crackles Abdomen nontender nondistended CVS S1 + S2 Lower extremity edema DS: Data Data Completed and Pending Labs on day of discharge: Labs from last 24 hours 01/13/22 01/13/22 01/13/22 05:20 05:20 02:04 WBC 3.8 L RBC 4.26 L Hgb 12.9 L D Hct 39.0 L MCV 91.5 MCH 30.3 MCHC 33.1 RDW 12.1 Plt Count 197 MPV 9.2 Sodium 134 L Potassium 4.0 Chloride 98 Carbon Dioxide 28 Anion Gap 8 BUN 18 D Creatinine 1.00 Estim Creat Clear Calc 78 Estimated GFR > 60 Glucose 135 H POC Capillary Glucose 157 H Calcium 8.5 Total Bilirubin 0.7 AST 41 ALT 77 H Alkaline Phosphatase 59 Total Protein 6.0 L Albumin 3.3 L 01/12/22 01/12/22 01/12/22 20:07 18:02 12:37 WBC RBC Hgb Hct MCV MCH MCHC RDW Plt Count MPV Sodium Potassium Chloride Carbon Dioxide Anion Gap BUN Creatinine Estim Creat Clear Calc Estimated GFR Glucose POC Capillary Glucose 224 H 200 H 103 Calcium Total Bilirubin AST ALT Alkaline Phosphatase Total Protein Albumin Discharge Plan Discharge Attending physician on discharge: Jesusita Rodrigez M.A. Consulting providers: Dorita Gonzales Discharging Clinician: Jesusita Rodrigez M.A. Patient Disposition: Home, Self-Care Activity: as tolerated Diet: heart healthy and low fat Patient Instructions: Antibiotic Form, How to Stop Smoking (GEN) Stand Alone Forms: General Discharge Information Follow-up/Referrals: Dorita Gonzales MD [Physician] - Joshua,MD Yesenia [Primary Care Provider] - Discharge Medications: Continued Lantus Solostar U-100 Insulin 100 unit/mL (3 mL) insulin pen 21 unit SUBCUT HS RF: 0 insulin aspart U-100 [Novolog Flexpen U-100 Insulin] 100 unit/mL (3 mL) Insulin Pen 15 unit SUBCUT AC RF: 0 omeprazole 20 mg Capsule,Delayed Release(Dr/Ec) 20 mg PO DAILY RF: 0 Date of admission: 01/11/22 19:11 Primary Care Provider: Joshua,Yesenia Admitting Provider: Lali Meyer Attending physician on admission: Lali Meyer Condition: Improved Quality VTE Prophylaxis VTE prophylaxis: pharmacologic ordered (Lovenox 40 mg subQ daily.)
[2022-01-13] MEDS: ENOXAPARIN 40 MG/0.4 ML SYRINGE SUB-Q (09:39)
--- NOTE | 2022-01-13 11:12 | PM.PNGS ---
Progress Note: A&P Assessment and Plan (1) Small bowel obstruction: Code(s): K56.609 - Unspecified intestinal obstruction, unspecified as to partial versus complete obstruction Status: Acute Assessment and Plan: SBS reviewed, exam benign, delma diet, +bowel fxn, ok to dc home, will need to f/u c GI to further evaluate recurrent SBO, jejunal dilation Subjective Subjective Date/Time Seen: 01/13/22 11:12 feels good, delma diet, +bowel fxn Review of Systems Review of Systems: All systems reviewed & are unremarkable except as noted in HPI and below Exam Const: General: cooperative, healthy appearing, comfortable and no acute distress Nutritional Appearance: average body habitus Resp: Auscultation: clear to auscultation bilaterally Cardio: Rate: regular rate Rhythm: regular rhythm GI: Inspection: normal to inspection, no edema and non-distended GI Palp: Yes Soft to palpation, No Tenderness to palpation present (GI), No Guarding due to palpation present (GI) and No Rigid due to palpation Objective Data Vital Signs Vital Signs: Vital Signs - 24 hr 01/12/22 14:00 01/12/22 21:42 01/13/22 05:32 Temperature 36.3 C L 36.3 C L 35.9 C L Pulse Rate 82 64 121 H Respiratory Rate 18 18 20 Blood Pressure 113/66 107/67 107/67 Pulse Oximetry 96 98 97 Intake/Output Intake/Output: Intake & Output 01/10/22 01/11/22 01/12/22 01/13/22 23:59 23:59 23:59 23:59 Intake Total 1999 3440 1240 Output Total 450 Balance 1999 2990 1240 Meds/Results Radiology Results: ITS Impressions Abdomen/Pelvis CT 01/11/22 18:30 IMPRESSION: 1. Small bowel obstruction involving jejunum. Abdomen X-Ray 01/11/22 20:02 IMPRESSION: 1. Dilated jejunum, consistent with small bowel obstruction. Small Bowel X-Ray 01/12/22 13:16 IMPRESSION: Nonspecific mild jejunal dilatation without apparent obstruction Labs Labs: Laboratory Results - last 24 hr 01/12/22 01/12/22 01/12/22 12:37 18:02 20:07 WBC RBC Hgb Hct MCV MCH MCHC RDW Plt Count MPV Sodium Potassium Chloride Carbon Dioxide Anion Gap BUN Creatinine Estim Creat Clear Calc Estimated GFR Glucose POC Capillary Glucose 103 200 H 224 H Calcium Total Bilirubin AST ALT Alkaline Phosphatase Total Protein Albumin 01/13/22 01/13/22 01/13/22 02:04 05:20 05:20 WBC 3.8 L RBC 4.26 L Hgb 12.9 L D Hct 39.0 L MCV 91.5 MCH 30.3 MCHC 33.1 RDW 12.1 Plt Count 197 MPV 9.2 Sodium 134 L Potassium 4.0 Chloride 98 Carbon Dioxide 28 Anion Gap 8 BUN 18 D Creatinine 1.00 Estim Creat Clear Calc 78 Estimated GFR > 60 Glucose 135 H POC Capillary Glucose 157 H Calcium 8.5 Total Bilirubin 0.7 AST 41 ALT 77 H Alkaline Phosphatase 59 Total Protein 6.0 L Albumin 3.3 L Quality VTE Prophylaxis VTE prophylaxis: pharmacologic ordered (Lovenox 40 mg subQ daily.)
== END 2022-01-13 11:05 | disposition home or self-care (01) | DRG 389 ==
LOC: ANHED 19:11 → ANH3MED 21:57
PROVIDERS: Emergency Medicine; Nurse Practitioner Adult Health; Admitting Provider Internal Medicine; Emergency Provider Emergency Medicine; PCP Family Medicine; Visit Provider Internal Medicine
DX: K56.609 Unspecified intestinal obstruction, unspecified as to partial versus complete obstruction (principal); N17.9 Acute kidney failure, unspecified; E10.65 Type 1 diabetes mellitus with hyperglycemia; Z20.822 Contact with and (suspected) exposure to COVID-19; R79.89 Other specified abnormal findings of blood chemistry; Z79.4 Long term (current) use of insulin; Z79.899 Other long term (current) drug therapy
CPT/HCPCS: 36415; 36600; 74177; 74250; 80053; 81001; 82375; 82805; 82948; 83050; 83605; 83690; 84484; 85025; 85027; 93005; 96361; 96374; 96375; 99285; A9270; C9113; C9803; J0131; J1170; J1650; J1815; J2405; J2550; J7030; J7120; Q9967; U0003; U0005

== ENCOUNTER → 2022-03-02 02:39 | Outpatient (CLI) | payer OTHER, SELFPAY ==
[2022-03-02 12:31] LABS: SARS-CoV-2 RNA PCR Negative
== END ==
PROVIDERS: PCP Family Medicine; Visit Provider Internal Medicine Gastroenterology
DX: Z01.812 Encounter for preprocedural laboratory examination (principal); Z20.822 Contact with and (suspected) exposure to COVID-19
CPT/HCPCS: C9803; U0003; U0005

== ENCOUNTER 2022-03-05 00:30 | Day surgery (SDC) | payer OTHER, SELFPAY ==
[2022-02-26 11:48] VITALS: BMI 23.5
[2022-03-05 08:12] VITALS: BP 137/78; PULSE 79; RESP 20; TEMP 36.9; O2SAT 99; BMI 23.6
[2022-03-05] MEDS: LACTATED RINGERS 1,000 ML 150 ML IV CONT (08:30)
[2022-03-05 08:32] LABS: Glucose Point of Care 257 mg/dl (65-105)
--- NOTE | 2022-03-05 08:39 | P.PNAN_ITS ---
Anes - Initial Pre Proc Eval Procedure: Operation Date: 03/05/22 09:00 Proposed Procedures p Esophagogastroduodenoscopy & Colonoscopy - Brett Champagne MD Date/Time: 03/05/22 08:39 Surgeon: Brett Champagne MD Pre Op Diagnosis: vomiting, small bowel obstruction, esophagitis Patient Data Age: 41 Gender: M Height: 1.68 m Weight: 66.4 kg Last Vital Signs Temp 98.5 F 03/05/22 08:12 Pulse 79 03/05/22 08:12 Resp 20 03/05/22 08:12 BP 137/78 03/05/22 08:12 Pulse Ox 99 03/05/22 08:12 Allergies Allergy/AdvReac Type Severity Reaction Status Date / Time No Known Allergies Allergy Verified 03/05/22 08:11 Home Medications Medication Instructions Recorded Confirmed Type insulin aspart U-100 [Novolog 15 unit SUBCUT AC 01/11/22 02/26/22 History Flexpen U-100 Insulin] insulin glargine 100 unit/mL (3 10 unit SUBCUT BID 01/15/22 02/26/22 History mL) subcutaneous pen Laboratory Tests 03/05/22 08:28 POC Capillary Glucose 257 mg/dl H mg/dl (65-105) Patient hx anesthesia problems: none Family hx anesthesia problems: none Results Review: All pre-operative results and documents have been reviewed as part of the pre-operative evaluation. [facility] Past Medical History Medical History Dyslipidemia Type 1 diabetes mellitus Surgical History Surgical History No history of previous surgery Family History Family History Mother Diabetes mellitus Social History Social History Social History: The patient lives in [place] with his . 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 No illicit substance use. He designates his as his surrogate decision maker and he wishes to be a full code. Smoking packs per day: 0.5 Smoking cigarettes per day: 10.0 Years smoked: 2 Smoking pack-years: 1.00 Smoking status: Never smoker Alcohol intake: never Substance use: never Living arrangements: with family Spiritual care concerns: No Anes - Eval Final PreProcedure Day of Procedure 03/05/22 08:39 Patient weight: normal Heart: regular rate and rhythm Lungs: clear to auscultation Airway: Mallampati scale class II Neurological: alert and oriented Last oral intake: >/= 8 hours ASA classification: II Emergent: no Anesthetic plan: proceed Anesthesia type and monitoring: general GIVS and standard monitoring Results Review: All pre-operative results and documents have been reviewed as part of the pre-operative evaluation. Informed Consent: The patient's anesthetic plan and its attendant risks and benefits were discussed with the patient/family/POA. Questions were solicited and answers provided to the satisfaction of the patient/family/POA.
--- NOTE | 2022-03-05 08:43 | WPDGICN ---
Assessment and Plan Assessment and plan (1) History of vomiting: Code(s): Z87.898 - Personal history of other specified conditions Status: Acute Assessment and Plan: patient with recurring episodes of vomiting associated with the dilated small bowel. Small bowel obstruction suggested but excluded by small-bowel series. Plan is for colonoscopy an EGD to exclude organic disease. (2) Abnormal CT scan: Code(s): R93.89 - Abnormal findings on diagnostic imaging of other specified body structures Status: Acute Assessment and Plan: Jejunal small bowel dilatation noted on CT scan when admitted in January 2022. Subsequent small-bowel follow-through unremarkable. Plan is for colonoscopy an EGD to exclude organic disease. (3) Type 1 diabetes mellitus: Code(s): E10.9 - Type 1 diabetes mellitus without complications Status: Acute GI Consult Note Consult date/time: 03/05/22 08:43 HPI: Frank Null is a 41 year old male With underlying history of diabetes. Presents for GI endoscopy. Patient reports that in December 2020 admitted the hospital with vomiting. He had similar episode in January of 2022. At that time jejunal dilatation was identified. Patient improved with conservative management. There was concern over small-bowel obstruction but small-bowel series was unremarkable. He presents today for colonoscopy an EGD to exclude organic disease. States he has had no problems since January. Eating well without difficulty. In general is diabetes is under better control. His family history is noncontributory. Patient denies any prior surgeries. There is concern over possible underlying diabetic gastroparesis. He presents for colonoscopy an EGD because of history of recurrent abdominal pain nausea vomiting and abnormal x-ray. Review of Systems Review of Systems: All systems reviewed & are unremarkable except as noted in HPI and below PMFSH Past Medical History Medical History Dyslipidemia Type 1 diabetes mellitus Surgical History Surgical History No history of previous surgery Family History Family History Mother Diabetes mellitus Social History Social History Social History: The patient lives in [place] with his . 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 Rare alcohol use. No illicit substance use. He designates his as his surrogate decision maker and he wishes to be a full code. Smoking packs per day: 0.5 Smoking cigarettes per day: 10.0 Years smoked: 2 Smoking pack-years: 1.00 Smoking status: Never smoker Alcohol intake: never Substance use: never Living arrangements: with family Spiritual care concerns: No Meds Home Medications and Allergies Home Medications Medication Instructions Recorded Confirmed Type insulin aspart U-100 [Novolog 15 unit SUBCUT AC 01/11/22 02/26/22 History Flexpen U-100 Insulin] insulin glargine 100 unit/mL (3 10 unit SUBCUT BID 01/15/22 02/26/22 History mL) subcutaneous pen Allergies Allergy/AdvReac Type Severity Reaction Status Date / Time No Known Allergies Allergy Verified 03/05/22 08:11 Vital Signs Vital Signs - 24 hr 03/05/22 08:12 Temperature 98.5 F Pulse Rate 79 Respiratory Rate 20 Blood Pressure 137/78 Pulse Oximetry 99 Exam Narrative: Physical exam reveals patient to be alert. Vital signs stable. HEENT exam is unremarkable. Patient is anicteric. Lungs are clear to auscultation and percussion. Heart is without murmur or extra sounds. Abdominal exam bowel sounds present soft nontender with no organomegaly. Digital external rectal exam is normal.
[2022-03-05] MEDS: BENZOCAINE (*SP) 60 ML SPRAY CAN (HURRICAINE) 1 SPRAY MUCOUS MEM (09:00)
[2022-03-05 09:21] VITALS: BP 98/54; PULSE 77; RESP 16; O2SAT 99
--- NOTE | 2022-03-05 09:23 | SUR.OPER ---
EGD: Start 899, End 901. Colon: Start 906, End 915
[2022-03-05 09:31] VITALS: BP 122/81; PULSE 78; RESP 18; O2SAT 100
[2022-03-05 09:41] VITALS: BP 105/70; PULSE 79; RESP 22; O2SAT 100
[2022-03-05 09:58] LABS: Glucose Point of Care 225 mg/dl (65-105)
== END 2022-03-05 10:11 | disposition home or self-care (01) ==
PROVIDERS: PCP Family Medicine; Visit Provider Internal Medicine Gastroenterology
PROC: 0DJ08ZZ Inspection of Upper Intestinal Tract, Via Natural or Artificial Opening Endoscopic (ICD-10-PCS; CPT 43235; principal; 2022-03-05 09:00)
DX: Z12.11 Encounter for screening for malignant neoplasm of colon (principal); Q39.4 Esophageal web; K22.10 Ulcer of esophagus without bleeding; E10.9 Type 1 diabetes mellitus without complications; E78.5 Hyperlipidemia, unspecified; Z79.4 Long term (current) use of insulin
CPT/HCPCS: 45378; 43450; 43235; 82948; C9803; J2704; J7120; U0003; U0005

== ENCOUNTER 2022-06-27 16:00 | Emergency (ER) | payer OTHER, SELFPAY ==
--- NOTE | ~2022-06-27 | XR_ITS ---
EXAMINATION: XR foot RT min 3V DATE: 06/27/2022 16:18 INDICATION: Right foot pain TECHNIQUE: Dorsoplantar, lateral, and 2 oblique views of the right foot were obtained. COMPARISON: None. FINDINGS: There is no fracture, dislocation, or subluxation. The bones, soft tissues, and joint space s are normal. IMPRESSION: 1. No acute osseous abnormality. Reviewed, dictated and finalized at location B.
[2022-06-27 16:06] VITALS: BP 140/68; PULSE 58; RESP 16; TEMP 37.2; O2SAT 98
--- NOTE | 2022-06-27 16:09 | ED.LOWEXIN ---
HPI - Extremity Injury (Lower) General Chief Complaint: Extremity Injury, Lower Stated Complaint: Right Foot Injury Time Seen by Provider: 06/27/22 16:09 Source: patient Mode of arrival: ambulatory Limitations: no limitations History of Present Illness HPI Narrative: 41 yo M presents with continued pain, tenderness, swelling to R foot. One month ago he kicked a cooler using the plantar aspect of his foot. Reports that he had immediate pain to his R foot and it has not improved. Worse when ambulatory. Swelling worse after work. ROM and distal NV intact. All systems reviewed and negative except as noted above. Related Data Home Medications Medication Instructions Recorded Confirmed insulin aspart U-100 100 unit/mL 15 unit subcut AC 01/11/22 02/26/22 (3 mL) subcutaneous pen (Novolog Flexpen U-100 Insulin aspart) insulin glargine 100 unit/mL (3 10 unit subcut BID 01/15/22 02/26/22 mL) subcutaneous pen (Semglee Pen U-100 Insulin) Allergies Allergy/AdvReac Type Severity Reaction Status Date / Time No Known Allergies Allergy Verified 06/27/22 16:18 Review of Systems Review of Systems: CONSTITUTIONAL: Denies fever, chills, or sweats. EYES: Denies visual changes, redness, or discharge. ENT: Denies rhinorrhea, congestion, sore throat, or otalgia. CARDIOVASCULAR: Denies chest pain, palpitations, or edema. RESPIRATORY: Denies cough or dyspnea. GASTROINTESTINAL: Denies abdominal pain, nausea, vomiting, or diarrhea. GENITOURINARY: Denies dysuria or hematuria. SKIN: Denies rash or itching. MUSCULOSKELETAL: Denies back pain, joint pain, or myalgia. Reports pain to medial aspect R foot. NEUROLOGIC: Denies headache, numbness, or weakness. PSYCHIATRIC: Denies anxiety or depression. All other systems reviewed are negative, except as documented in HPI. [facility] Past Medical History Medical History Dyslipidemia Type 1 diabetes mellitus Surgical History Surgical History No history of previous surgery Family History Family History Mother Diabetes mellitus Social History Social History Social History: The patient lives in [place] with his . 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 Rare alcohol use. No illicit substance use. He designates his as his surrogate decision maker and he wishes to be a full code. Smoking packs per day: 0.5 Smoking cigarettes per day: 10.0 Years smoked: 2 Smoking pack-years: 1.00 Smoking status: Never smoker Alcohol intake: never Substance use: never Spiritual care concerns: No Comments At time of signature, agree with nursing past medical, surgical, social and family history. There is no relevant family history pertinent to the presenting complaint. Exam Narrative: GENERAL: This is a well-nourished, well-developed patient, in no apparent distress. HEAD: normocephalic, atraumatic. EYES: PERRL. Sclera clear/white. Vision is grossly intact. EARS: External ears normal NOSE: External nose normal NECK: Neck supple, non-tender without lymphadenopathy, masses or thyromegaly. CARDIOVASCULAR: Regular rate and rhythm without murmurs, gallops, or rubs. RESPIRATORY: Clear to auscultation. Breath sounds equal bilaterally. No wheezes, rales, or rhonchi. SKIN: warm, Dry, intact with no suspicious lesions or rash, good texture and turgor. NEURO: awake, alert, and oriented to person, place and time. There were no obvious focal neurologic abnormalities. Musculoskeletal: point tenderness to medial aspect R navicular bone. swelling noted. Course Course Level of Care: Express Care Visit Vital Signs Vital signs: Reviewed MDM - Extremity Injury (Lower) MDM Narrative Medical decision making narrat
== END 2022-06-27 16:52 | disposition home or self-care (01) ==
PROVIDERS: Emergency Provider Nurse Practitioner Family; PCP Family Medicine
DX: S90.31XA Contusion of right foot, initial encounter (principal); W22.8XXA Striking against or struck by other objects, initial encounter; E78.5 Hyperlipidemia, unspecified; E10.9 Type 1 diabetes mellitus without complications
CPT/HCPCS: 73630; 99213; G0463

== ENCOUNTER 2023-05-06 12:07 | Outpatient (CLI) | payer OTHER, SELFPAY ==
[2023-05-06 20:07] LABS: Alanine Aminotransferase 36 U/L (6-50); Albumin Level 4.1 g/dL (3.5-5.1); Alkaline Phosphatase 97 U/L (38-126); Anion Gap 6 mmol/L (8-16); Aspartate Amino Transferase 49 U/L (17-59); Bilirubin,Total 0.6 mg/dL (0.2-1.3); Blood Urea Nitrogen 27 mg/dL (9-20); Carbon Dioxide 28 mmol/L (22-30); Chloride 100 mmol/L (98-107); Cholesterol 221 mg/dL (0-200); Estimated Glomerular Filt Rate > 60; Glucose 293 mg/dL (65-110); HDL Direct 39 mg/dL; Potassium 4.7 mmol/L (3.4-5.0); Sodium 134 mmol/L (137-145); Triglycerides 169 mg/dL (<150)
[2023-05-06 20:18] LABS: LDL Cholesterol Direct 136 mg/dL
[2023-05-06 21:41] LABS: Hematocrit 44.3 % (42.0-52.0); Hemoglobin 14.6 g/dL (14.0-18.0); Mean Corpuscular Hemoglobin 29.2 pg (26-34); Mean Corpuscular Volume 88.6 fl (80-100); Mean Platelet Volume 9.7 fl (7.4-10.4); Platelet Count Result 246 k/mm3 (150-375); Red Cell Distribution Width 12.4 % (11.5-14.5); White Blood Count 6.2 K/mm3 (4.5-10.0)
== END 2023-05-06 12:08 | disposition home or self-care (01) ==
LOC: ANHBWCLAB 12:08
PROVIDERS: PCP Family Medicine; Visit Provider Family Medicine
DX: E11.9 Type 2 diabetes mellitus without complications (principal); E78.5 Hyperlipidemia, unspecified
CPT/HCPCS: 36415; 80053; 80061; 85027